=== PATIENT | female | born 1980 | race Caucasian/White ===

== ENCOUNTER → 2017-02-22 | Outpatient (CLI) | payer OTHER ==
[~2017-02-22] MED LIST: EFF75 PO; LEVO112T4 PO; OXYC-57 PO
== END | disposition home or self-care (01) ==
LOC: C.PATHSPEC 17:25
PROVIDERS: ATTEND Plastic Surgery
DX: D22.4 Melanocytic nevi of scalp and neck (principal); D22.5 Melanocytic nevi of trunk

== ENCOUNTER → 2017-05-09 | Outpatient (CLI) | payer OTHER | END | disposition home or self-care (01) | LOC: C.PAPS 15:17 | PROVIDERS: ATTEND Nurse Practitioner | DX: Z00.00 Encounter for general adult medical examination without abnormal findings (principal) ==

== ENCOUNTER → 2017-05-09 | Outpatient (CLI) | payer OTHER ==
[2017-05-09 18:06] LABS: BLOOD UREA NITROGEN 17 mg/dl (7-18); BUN/CREATININE RATIO 18.4 (10-20); CALCIUM 8.9 mg/dl (8.5-10.1); CARBON DIOXIDE 28 mmol/L (21-32); CHLORIDE 104 mmol/L (98-107); CHOLESTEROL 144 mg/dl (0-200); CREATININE 0.92 mg/dl (0.60-1.20); GLUCOSE 83 mg/dl (70-99); POTASSIUM 3.4 mmol/L (3.5-5.1); SODIUM 139 mmol/L (136-145)
[2017-05-09 18:20] LABS: HDL CHOLESTEROL 72 mg/dl; LDL CHOLESTEROL CALCULATED 60 mg/dl; TRIGLYCERIDES 61 mg/dl (0-150); VERY LOW DENSITY LIPOPROT CALC 12 mg/dl
== END | disposition home or self-care (01) ==
LOC: C.LABPVFM 15:08
PROVIDERS: ATTEND Nurse Practitioner
DX: E03.9 Hypothyroidism, unspecified (principal); Z13.220 Encounter for screening for lipoid disorders

== ENCOUNTER → 2017-09-28 | Outpatient (CLI) | payer OTHER ==
[2017-09-28 14:31] LABS: HEMATOCRIT 38.4 % (37-47); MEAN CELL VOLUME 87.1 fL (80-100); MEAN CORPUSCULAR HEMOGLOBIN 28.6 pg (25-34); MEAN CORPUSCULAR HGB CONC 32.8 g/dl (32-36); MEAN PLATELET VOLUME 9.8 fL (7.4-10.4); PLATELET COUNT 264 K/uL (130-400); RED BLOOD COUNT 4.41 M/uL (4.2-5.4); WHITE BLOOD COUNT 6.28 K/uL (4.8-10.8)
[2017-09-28 14:43] LABS: ALT/SGPT 20 U/L (12-78); AST/SGOT 16 U/L (15-37); BLOOD UREA NITROGEN 14 mg/dl (7-18); BUN/CREATININE RATIO 17.8 (10-20); CALCIUM 8.3 mg/dl (8.5-10.1); CARBON DIOXIDE 29 mmol/L (21-32); CHLORIDE 105 mmol/L (98-107); CREATININE 0.77 mg/dl (0.60-1.20); GLUCOSE 81 mg/dl (70-99); POTASSIUM 3.5 mmol/L (3.5-5.1); SODIUM 136 mmol/L (136-145)
[2017-09-28 14:54] LABS: ALB/GLOB RATIO 1.2 (0.9-2); ALKALINE PHOSPHATASE 78 U/L (45-117)
[2017-10-03 17:32] LABS: IGA SERUM 156 mg/dL (81-463); TIS TRANS IGA 1 U/mL (<4)
== END | disposition home or self-care (01) ==
LOC: C.LAB1850 13:15
PROVIDERS: ATTEND Physician Assistant
DX: E03.9 Hypothyroidism, unspecified (principal); R53.83 Other fatigue; R14.0 Abdominal distension (gaseous)

== ENCOUNTER → 2017-10-01 | Outpatient (CLI) | payer OTHER | END | disposition home or self-care (01) | LOC: C.LAB1850 12:42 | PROVIDERS: ATTEND Physician Assistant | DX: E07.9 Disorder of thyroid, unspecified (principal); E03.9 Hypothyroidism, unspecified; R53.83 Other fatigue ==

== ENCOUNTER → 2017-10-18 | Outpatient (CLI) | payer OTHER ==
--- NOTE | 2017-10-19 12:51 | MAMMOGRAPHY REPORT ---
BILATERAL FIRST EVER DIGITAL SCREENING MAMMOGRAM TOMOSYNTHESIS WITH CAD: 10/18/2017 CLINICAL HISTORY: Asymptomatic Pre-Augmentation. TECHNIQUE: Breast tomosynthesis in addition to standard 2D mammography was performed. Current study was also evaluated with a Computer Aided Detection (CAD) system. COMPARISON: No prior exams were available for comparison. BREAST COMPOSITION: The tissue of both breasts is extremely dense, which lowers the sensitivity of m ammography. FINDINGS: There is an oval circumscribed 6 mm mass seen within the left medial breast at approximate ly 9:00, for which ultrasound and possible additional spot compression views are recommended for furt her evaluation. The remainder of both breasts demonstrate no suspicious masses, calcifications, or areas of wireless architect ural distortion. IMPRESSION: ACR BI-RADS CATEGORY 0: INCOMPLETE EVALUATION: NEED ADDITIONAL IMAGING EVALUATION Left breast mass, for which additional imaging evaluation is recommended. The patient will be called to schedule an appointment. Approximately 10% of breast cancers are not detected with mammography. A negative mammographic report should not delay biopsy if a clinically suggestive mass is present. Negin Gomes M.D. ah/:10/18/2017 16:14:54 Anthropologist: Summer Garcia [facility] letter sent: Addl Imaging 0 BI-RADS Code: ACR BI-RADS Category 0: Incomplete Evaluation: Need Additional Imaging Evaluation
== END | disposition home or self-care (01) ==
LOC: C.MAMM 10:51
PROVIDERS: ATTEND Surgery Plastic and Reconstructive Surgery
DX: Z12.31 Encounter for screening mammogram for malignant neoplasm of breast (principal); N63.20 Unspecified lump in the left breast, unspecified quadrant

== ENCOUNTER → 2017-10-24 | Outpatient (CLI) | payer OTHER ==
--- NOTE | 2017-10-24 15:00 | MAMMOGRAPHY REPORT ---
ULTRASOUND OF LEFT BREAST: 10/24/2017 CLINICAL HISTORY: 37-year-old woman called back from baseline screening mammogram for a 6 mm circumsc ribed mass in the medial left breast. No family history of breast cancer. COMPARISON: Screening mammogram performed 10/18/2017. FINDINGS: Targeted ultrasound was performed in the medial left breast. In the 10:00 axis, 2 cm from the nipple, there is an oval parallel hypoechoic circumscribed mass without significant posterior ac oustic enhancement or posterior shadowing. It measures 5.0 x 3.0 x 5.0 mm. This is thought to corre late with the circumscribed mammographic mass and could represent a fibroadenoma or complicated cyst. Definitive characterization with ultrasound guided cyst aspiration versus core biopsy is recommende d. IMPRESSION: ACR BI-RADS CATEGORY 4: SUSPICIOUS - FOLLOW-UP RECOMMENDED 1. Ultrasound-guided cyst aspiration versus core needle biopsy is recommended for an oval parallel h ypoechoic solid versus cystic 5 mm mass in the 10:00 left breast, 2 cm from the nipple, thought to co rrelate with the circumscribed mammographic mass. These results and recommendations were discussed with the patient at the time of the exam. She tenta tively scheduled the procedure prior to leaving our department. Kaylin Frances M.D. ay/:10/24/2017 14:41:17 Rubber Gasket Inspector Trimmer: Dr. Kaylin Frances, [facility] letter sent: Abnormal 4/5 BI-RADS Code: ACR BI-RADS Category 4: Suspicious
== END | disposition home or self-care (01) ==
LOC: C.MAMM 14:03
PROVIDERS: ATTEND Surgery Plastic and Reconstructive Surgery
DX: N63.20 Unspecified lump in the left breast, unspecified quadrant (principal)

== ENCOUNTER → 2017-10-31 | Outpatient (CLI) | payer OTHER ==
--- NOTE | 2017-10-31 09:58 | Discharge Instructions ---
Discharge Instructions Procedure Procedure Date: Oct 31, 2017. Reason for visit: Left Mass, Cyst Asp Vs Core. Discharge Discharge Date: Oct 31, 2017. Discharge Diagnosis: status post breast biopsy Instructions Activity Recommendations: Additional Limitations (see below) Return to School/Work: no limitations Recommended Home Diet: No Limitations Provider Instructions: ACTIVITY RECOMMENDATIONS: * No lifting, pushing, pulling or exercising the affected side for three days. RETURN TO SCHOOL/WORK: * You may return to work/school after the procedure, but do not perform any strenuous activities for 24 to 48 hours. MEDICATIONS: * Tylenol (two 325 mg) every four to six hours if needed for mild pain (if not allergic to Tylenol). DIET: * Resume previous diet. SPECIAL CARE INSTRUCTIONS: * Keep biopsy site dry for 24 hours. May shower after 24 hours, but do not soak (bathe) incision. * May remove Tegaderm (plastic patch) tomorrow AFTER showering. * Leave the steri-strips on for one week. Allow the steri-strips to fall off by themselves. If not off after one week, you may remove them. You may place a Bandaid crosswise over the strips, if desired. * Apply ice 10 minutes on and 10 minutes off as needed. * Wear a bra at bedtime to sleep more comfortably for 2-3 days. * Your referring physician should have the results after approximately 5 to 7 business days. * Call for unusual bleeding, fever, drainage, etc or if you have any questions call during normal business hours or after hours call Dr Gomes, . FOLLOW UP VISIT: Follow-up with Referring Physician as scheduled. Allergies Coded Allergies: Codeine (Verified Allergy, Mild, VOMITTNG, 04/30/15) VOMITTING [facility] Recommendations: Call your doctor if: * Temperature above 101 degrees * Pain not relieved by pain medicine ordered * There is increased drainage or redness from any incision * You have any unanswered questions or concerns. Your Doctors Instructions noted above were prepared by provider Negin Gomes. Patient Signature Section: Patient Instructions Signature Page Yamial Webster Patient (or Guardian) Signature/Date: I have read and understand the instructions given to me by my caregivers. Caregiver/RN/Doctor Signature/Date: The above-named patient and/or guardian has received patient instructions on this date. + Original Patient Signature Page (only) stays with chart. Please make copy for patient.
--- NOTE | 2017-10-31 15:28 | MAMMOGRAPHY REPORT ---
ULTRASOUND GUIDED BIOPSY LEFT BREAST: 10/31/2017 CLINICAL HISTORY: Left 10:00 breast mass. PATIENT CONSENT: The procedure, risks and benefits were discussed with the patient and informed writt en consent was obtained. A timeout was performed immediately prior to the procedure. PROCEDURE DESCRIPTION: With ultrasound guidance, aseptic technique, and lidocaine as the local anesth etic (1% lidocaine to anesthetize the skin and 1% lidocaine with epinephrine to anesthetize the deepe r tissues), an attempt was made to aspirate the mass, however, it would not aspirate therefore the de cision was made to proceed to biopsy. Therefore, the mass of concern in the left 10:00 breast was alessia pled 4 times with a 14-gauge Achieve biopsy needle. Immediately thereafter, with ultrasound guidance , aseptic technique, and lidocaine as the local anesthetic, a metallic localizer clip was placed at t he biopsy site. Direct pressure was applied to the site immediately post procedure and hemostasis wa s achieved. Postprocedure unilateral mammograms were performed to confirm placement of the clip in t he expected location of the breast mass. The patient tolerated the procedure without complication. She was given wound care instructions. The specimens were sent to pathology for analysis. COMPARISON: Comparison is made to exams dated: 10/24/2017 ultrasound and 10/18/2017 mammogram - [facility]. IMPRESSION: ULTRASOUND GUIDED BIOPSY Ultrasound guided core needle biopsy of the left 10:00 breast mass, with clip placement. The patient will receive pathology results from her referring provider. Negin Gomes M.D. ah/:10/31/2017 09:59:38 Attending Technologist: Negin Gomes MD, [facility] Metal Sprayer: Summer SHEETS(Jacobo)(M), [facility]
--- NOTE | 2017-10-31 15:32 | MAMMOGRAPHY REPORT ---
UNILATERAL LEFT DIGITAL DIAGNOSTIC MAMMOGRAM TOMOSYNTHESIS: 10/31/2017 CLINICAL HISTORY: Status post left breast biopsy. TECHNIQUE: Breast tomosynthesis in addition to standard 2D mammography was performed. Postprocedura l left CC and ML tomosynthesis images including C views were obtained. COMPARISON: Comparison is made to exams dated: 10/31/2017 ultrasound biopsy, 10/24/2017 ultrasound, and 10/18/2017 mammogram - [facility]. BREAST COMPOSITION: The tissue of the left breast is extremely dense, which lowers the sensitivity o f mammography. FINDINGS: A new biopsy marker clip is seen at the site of the biopsied mass in the left 10:00 breast . No significant postbiopsy hematoma is seen. IMPRESSION: POST PROCEDURE IMAGING FOR MARKER PLACEMENT New biopsy marker clip status post left breast biopsy. Pathology results are pending. Approximately 10% of breast cancers are not detected with mammography. A negative mammographic report should not delay biopsy if a clinically suggestive mass is present. Negin Gomes M.D. ah/:10/31/2017 10:05:02 Line Crew Supervisor: Summer SHEETS(R)(M), [facility] BI-RADS Code: Post Procedure Imaging For Marker Placement
== END | disposition home or self-care (01) ==
LOC: C.MAMM 08:51
PROVIDERS: ATTEND Surgery Plastic and Reconstructive Surgery
DX: R92.8 Other abnormal and inconclusive findings on diagnostic imaging of breast (principal); N63.20 Unspecified lump in the left breast, unspecified quadrant; D24.2 Benign neoplasm of left breast

== ENCOUNTER → 2018-02-25 | Outpatient (CLI) | payer OTHER | END | disposition home or self-care (01) | LOC: C.LAB1850 13:23 | PROVIDERS: ATTEND Physician Assistant | DX: E03.9 Hypothyroidism, unspecified (principal) ==